=== PATIENT | female | born 1955 | race Caucasian/White ===

== ENCOUNTER 2024-04-21 13:37 | Outpatient (AMB) | payer MEDICARE, SELFPAY ==
--- NOTE | 2024-04-21 14:09 | HO.SPINEOV ---
Vital Signs 04/21/24 14:10 Height 5 ft 5 in Weight 170 lb BMI 28.3 Intake Visit Reasons: LBP Intake Note: Ms. Momin is here today c/o back pain that radiates into the right hip. 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 HPI: This 68-year-old female underwent a lumbar fusion 2005 with good results. She developed back pain and right hip pain approximately 1 year ago. Her symptoms are progressive. She described that at night when she has to come out of bed she has severe right hip pain when standing on it and her right leg will give out. Cleaning the floor produces back pain which improves when she sits down. No difficulty getting in and out of the car. She can lay on her side without difficulties. However after 10-15 minutes walking the pain is gone. No left-sided complaints. He saw Dr. Barksdale in [place] who gave her a lumbar injection which helped temporarily. PMH: Hypertension, neuropathy, hand and leg cramps Medications: Cardizem, Prilosec, Detrol, Lyrica Allergies: Antibiotics Social history: Smokes 1 pack a day Physical Exam: Pleasant female. She is not in obvious agony. SI provocative tests are negative. Straight leg raise is negative. No motor deficits. Radiological Studies: MRI done at [facility] on 03/29/2024 shows status post L4-5 lumbar fusion without signs of central spinal stenosis, foraminal stenosis or other type of nerve compression. Impression/Plan: This patient is suffering from intermittent right hip pain that improves with activity. Her symptoms are not neurogenic in nature. They are also not characteristic for SI joint pathology. The MRI shows no surgical reason for her symptoms. My advice would be to evaluate her right hip for pathology. I do not see a reason for more spinal injections. Thank you for allowing me to participate in your patients care. total time spent was 40 minutes in counseling ,coordination of plan, personal review of imaging, surgical decision making and subsequent plan Rene Cesar MD, PhD Sp[facility] Trained Neurosurgeon Director, [facility] Coding Level of Care Code New Pt Level 3 (57888) Diagnoses Status post lumbar spinal arthrodesis Z98.1
[2024-04-21 14:10] VITALS: BMI 28.3
== END 2024-04-21 15:05 | disposition home or self-care (01) ==
PROVIDERS: PCP Physician Assistant Medical; Referring Provider Physician Assistant Medical; Visit Provider Neurological Surgery
DX: Z98.1 Arthrodesis status (principal)
CPT/HCPCS: 99203

== ENCOUNTER → 2024-04-21 13:37 | Outpatient (BNVA) | payer MEDICARE, SELFPAY | PROVIDERS: PCP Physician Assistant Medical; Visit Provider Neurological Surgery | DX: Z98.1 Arthrodesis status (principal) | CPT/HCPCS: 99202 ==